=== PATIENT | male | born 1950 | race Caucasian/White ===

== ENCOUNTER 2020-04-24 13:51 | Observation (INO) | payer OTHER ==
--- NOTE | 2020-04-24 14:23 | RAD REPORT ---
EXAM DESCRIPTION: Macie Single View04/24/2020 2:17 pm CLINICAL HISTORY: Chest pain COMPARISON: none FINDINGS: Left base is hazy. Remainder lungs appear Clear of acute infiltrate. The heart is normal size IMPRESSION: Left base is hazy. This probably is secondary to mild atelectasis or pneumonia
[2020-04-24] MEDS ORDERED: ASPIRIN 81 MG CHEWABLE TABLET ONE (14:42)
[2020-04-24 14:45] LABS: Protime INR 1.05
[2020-04-24 14:56] LABS: Absolute Lymphocytes (CBC) 1.4 K/uL (0.7-4.9); Basophils % 0.7 % (0-1.3); Hematocrit 42.8 % (39.6-49.0); Lymphocytes % 12.6 % (15.3-44.8); MPV 7.5 fL (7.6-11.3); RBC Red Blood Cell Count 5.13 M/uL (4.33-5.43)
[2020-04-24 14:58] LABS: ALT/SGPT 24 U/L (12-78); AST/SGOT 21 U/L (15-37); Albumin 3.5 g/dL (3.4-5.0); Alkaline Phosphatase 116 U/L (45-117); BUN Blood Urea Nitrogen 15 mg/dL (7-18); Bicarbonate 25 mmol/L (21-32); Bilirubin Direct 0.2 mg/dL (0-0.2); Bilirubin Total 0.7 mg/dL (0.2-1.0); Glucose Level 128 mg/dL (74-106); Magnesium 2.3 mg/dL (1.8-2.4); NT PRO-BNP 223 pg/mL (<125); Potassium 4.1 mmol/L (3.5-5.1); Protein, Total 7.5 g/dL (6.4-8.2); Sodium Level 138 mmol/L (136-145); Troponin (Emerg Dept Use Only) < 0.02 ng/mL (0.0-0.045)
--- NOTE | 2020-04-24 15:32 | EDPHYS ---
Physician Documentation [facility] Name: Amado Rocha Age: 69 yrs Sex: Male : 1950 Arrival Date: 04/24/2020 Time: 13:52 Bed 6 Private MD: ED Physician Spenser Dickson HPI: 04/24 13:56 This 69 yrs old Male presents to ER via Ambulatory with complaints of Chest pm1 Pain. 13:56 The patient or guardian reports chest pain that is located primarily in the mid-sternal pm1 area and left arm. Onset: today, at 10:00. The pain does not radiate. Associated signs and symptoms: Pertinent positives: nausea, shortness of breath, productive cough last night. The chest pain is described as a pressure. Duration: The patient or guardian reports a single episode, that is still ongoing. Modifying factors: The symptoms are alleviated by rest, the symptoms are aggravated by exertion. Severity of pain: in the emergency department the pain is actually worse. The patient has not experienced similar symptoms in the past. Historical: - Allergies: 14:09 No Known Allergies; ca1 - PMHx: 14:09 Asthma; Bradycardia; tachycardia; ca1 - Immunization history:: Adult Immunizations up to date. - Social history:: Smoking status: Patient denies any tobacco usage or history of. ROS: 13:56 Constitutional: Negative for fever, chills, and weight loss, Neck: Negative for injury, pm1 pain, and swelling. 13:56 Abdomen/GI: Negative for abdominal pain, nausea, vomiting, diarrhea, and constipation, Back: Negative for injury and pain, MS/Extremity: Negative for injury and deformity, Skin: Negative for injury, rash, and discoloration, Neuro: Negative for headache, weakness, numbness, tingling, and seizure. 13:56 Cardiovascular: Positive for chest pain, Negative for edema, orthopnea, palpitations. 13:56 Respiratory: Positive for cough, with yellow sputum, shortness of breath. Exam: 13:56 Constitutional: This is a well developed, well nourished patient who is awake, alert, pm1 and in no acute distress. Head/Face: Normocephalic, atraumatic. 13:56 Back: No spinal tenderness. No costovertebral tenderness. Full range of motion. Skin: Warm, dry with normal turgor. Normal color with no rashes, no lesions, and no evidence of cellulitis. MS/ Extremity: Pulses equal, no cyanosis. Neurovascular intact. Full, normal range of motion. 13:56 Cardiovascular: Exam negative for acute changes, Rate: normal, Rhythm: regular, Pulses: no pulse deficits are appreciated. 13:56 Respiratory: Exam negative for acute changes, respiratory distress, shortness of breath. 13:56 Neuro: Exam negative for acute changes, Orientation: is normal, Motor: is normal, moves all fours. Vital Signs: 14:05 BP 128 / 61; Pulse 67; Resp 16 S; Temp 97.5(TE); Pulse Ox 98% on R/A; Weight 129.27 kg ca1 (R); Height 6 ft. 1 in. (185.42 cm) (R); Pain 4/10; 16:00 BP 117 / 58; Pulse 68; Resp 16; Pulse Ox 97% ; bp 17:00 BP 110 / 59; Pulse 73; Resp 16; Pulse Ox 98% ; bp 18:00 BP 121 / 68; Pulse 75; Resp 16; Pulse Ox 96% ; bp 19:27 BP 120 / 69; Pulse 70; Resp 17; Temp 98; Pulse Ox 99% ; Pain 0/10; rr5 14:05 Body Mass Index 37.60 (129.27 kg, 185.42 cm) ca1 MDM: 13:56 Patient medically screened. pm1 15:25 Counseling: I had a detailed discussion with the patient and/or guardian regarding: the pm1 historical points, exam findings, and any diagnostic results supporting the discharge/admit diagnosis, lab results, radiology results, the need for further work-up and treatment in the hospital. 15:31 Data reviewed: vital signs. Data interpreted: Pulse oximetry: on room air is 98 %. pm1 Interpretation: normal. 04/24 13:56 Order name: Basic Metabolic Panel; Complete Time: 14:59 pm1 04/24 13:56 Order name: CBC with Diff; Complete Time: 14:59 pm1 04/24 13:56 Order name: LFT's; Complete Time: 14:59 pm1 04/24 13:56 Order name: Magnesium; Complete Time: 14:59 pm1 04/24 13:56 Order name: NT PRO-BNP; Complete Time: 14:59 pm1 04/24 13:56 Order name: PT-INR; Complete Time: 14:59 pm1 04/24 13:56 Order name: Troponin (emerg Dept Use Only); Complete Time: 14:59 pm1 04/24 15:24 Order name: Flu; Complete Time: 17:21 pm1 04/24 15:24 Order name: Blood Culture Adult (2) pm1 04/24 16:40 Order name: CBC with Automated Diff EDMS 04/24 16:40 Order name: CBC with Automated Diff; Complete Time: 06:29 EDMS 04/24 16:40 Order name: CKMB Creatine Kinase MB EDMS 04/24 16:40 Order name: CKMB Creatine Kinase MB; Complete Time: 06:29 EDMS 04/24 13:56 Order name: XRAY Chest (1 view); Complete Time: 14:26 pm04/24 16:40 Order name: CKMB Creatine Kinase MB; Complete Time: 06:29 EDMS 04/24 16:40 Order name: CKMB Creatine Kinase MB; Complete Time: 06:29 EDMS 04/24 16:40 Order name: Comprehensive Metabolic Panel EDMS 04/24 16:40 Order name: Comprehensive Metabolic Panel; Complete Time: 06:29 EDMS 04/24 16:40 Order name: Lipid Profile EDMS 04/24 16:40 Order name: Lipid Profile; Complete Time: 06:29 EDMS 04/24 16:40 Order name: Magnesium EDMS 04/24 16:40 Order name: Magnesium; Complete Time: 06:29 EDMS 04/24 16:40 Order name: Phosphorus EDMS 04/24 16:40 Order name: Phosphorus; Complete Time: 06:29 EDMS 04/24 16:40 Order name: Troponin I EDMS 04/24 16:40 Order name: Troponin I; Complete Time: 06:29 EDMS 04/24 16:40 Order name: Troponin I; Complete Time: 06:29 EDMS 04/24 16:40 Order name: Troponin I; Complete Time: 06:29 EDMS 04/24 17:53 Order name: SARS-COV-2 RT PCR; Complete Time: 18:07 EDMS 04/24 13:56 Order name: EKG; Complete Time: 13:57 pm04/24 13:56 Order name: Cardiac monitoring; Complete Time: 14:06 pm04/24 13:56 Order name: EKG - Nurse/Tech; Complete Time: 14:06 pm1 04/24 13:56 Order name: IV Saline Lock; Complete Time: 14:35 pm1 04/24 13:56 Order name: Labs collected and sent; Complete Time: 14:35 pm1 04/24 13:56 Order name: O2 Per Protocol; Complete Time: 14:06 pm1 04/24 13:56 Order name: O2 Sat Monitoring; Complete Time: 14:06 pm1 04/24 16:40 Order name: Heart Healthy EDMS 04/24 18:44 Order name: CT; Complete Time: 06:29 EDMS Administered Medications: 14:15 Drug: Aspirin Chewable Tablet 324 mg Route: PO; bp 16:17 Follow up: Response: Marked relief of symptoms bp 15:40 Drug: Xopenex 1.25 mg Route: Inhalation; bp 15:40 Drug: Rocephin 1 grams Route: IV; Rate: calculated rate; Site: right forearm; bp 16:17 Follow up: IV Status: Completed infusion; IV Intake: 50ml bp 19:50 Not Given (Patient Refused): morphine 4 mg IVP once; RASS on ADMIN: Combtv4, Very rr5 Agttd3, Agttd2, Rstlss1, AlertClm0, Drwsy-1, Lt Sdtn-2, Mod Sdtn-3, Dp Sdtn-4, UnArsble-5 19:50 Not Given (Patient Refused): Zofran (Ondansetron) 4 mg IVP once; over 2 minutes rr5 Disposition: 04/24/20 15:32 Hospitalization ordered by Ran Dale for Observation. Preliminary diagnosis are Chest pain, unspecified, Pneumonia, unspecified organism. - Bed requested for Telemetry/MedSurg (observation). - Status is Observation. rr5 - Condition is Stable. - Problem is new. - Symptoms have improved. Addendum: 04/28/2020 20:25 Co-signature as Attending Physician, Spenser Dickson MD. r n Signatures: Dispatcher [employer] [facility] Aury Mcgovern RN RN dw Nieto, Roman, MD MD rn Marinas, Patrick, MILK PICKUP TRUCK DRIVER MIL[employer] PICKUP TRUCK DRIVER pm1 Harjeet Whitley RN RN bp Roque, Raymond, RN RN rr5 Acob, Leann, RN RN ca1 Corrections: (The following items were deleted from the chart) 04/24 16:25 15:25 CORONAVIRUS+MR.LAB.BRZ ordered. EDMS EDMS 18: 15:32 Hospitalization Ordered by Ran Dale MD for Observation. Preliminary dw diagnosis is Chest pain, unspecified; Pneumonia, unspecified organism. Bed requested for Telemetry/MedSurg (observation). Status is Observation. Condition is Stable. Problem is new. Symptoms have improved. pm1 19:52 18:01 04/24/2020 15:32 Hospitalization Ordered by Ran Dale MD for Observation. rr5 Preliminary diagnosis is Chest pain, unspecified; Pneumonia, unspecified organism. Bed requested for Telemetry/MedSurg (observation). Status is Observation. Condition is Stable. Problem is new. Symptoms have improved. dw
--- NOTE | 2020-04-24 15:32 | ER ---
Nurse's Notes [facility] Name: Amado Rocha Age: 69 yrs Sex: Male : 1950 Arrival Date: 04/24/2020 Time: 13:52 Bed 6 Private MD: Diagnosis: Chest pain, unspecified;Pneumonia, unspecified organism Presentation: 04/24 14:05 Chief complaint: Patient states: Chest pain started around 10am today. Radiating to the ca1 L shoulder, L arm, intermittent, pain described as pressure. SOB with CP. Took extra strength Tylenol taken at 10, [place] taken at 1230 pm. No relief. Coronavirus screen: Client denies travel out of the [place] in the last 14 days. At this time, the client does not indicate any symptoms associated with coronavirus-19. Ebola Screen: Patient negative for fever greater than or equal to 101.5 degrees Fahrenheit, and additional compatible Ebola Virus Disease symptoms Patient denies exposure to infectious person. Patient denies travel to an Ebola-affected area in the 21 days before illness onset. No symptoms or risks identified at this time. Initial Sepsis Screen: Does the patient meet any 2 criteria? No. Patient's initial sepsis screen is negative. Does the patient have a suspected source of infection? No. Patient's initial sepsis screen is negative. Risk Assessment: Do you want to hurt yourself or someone else? Patient reports no desire to harm self or others. Onset of symptoms was April 24, 2020. 14:05 Method Of Arrival: Ambulatory ca1 14:05 Acuity: ISABEL 3 ca1 Triage Assessment: 14:05 General: Appears in no apparent distress. comfortable, Behavior is cooperative, bp appropriate for age, anxious. Pain: Complains of pain in chest. EENT: No deficits noted. Neuro: No deficits noted. Cardiovascular: Rhythm is sinus rhythm. Respiratory: No deficits noted. GI: No signs and/or symptoms were reported involving the gastrointestinal system. : No signs and/or symptoms were reported regarding the genitourinary system. Derm: No deficits noted. Musculoskeletal: No deficits noted. Historical: - Allergies: 14:09 No Known Allergies; ca1 - PMHx: 14:09 Asthma; Bradycardia; tachycardia; ca1 - Immunization history:: Adult Immunizations up to date. - Social history:: Smoking status: Patient denies any tobacco usage or history of. Screenin:10 Abuse screen: Denies threats or abuse. Denies injuries from another. Nutritional bp screening: No deficits noted. Tuberculosis screening: No symptoms or risk factors identified. Fall Risk None identified. Assessment: 14:05 General: SEE TRIAGE NOTE. bp 16:00 Reassessment: ADMIT MD AT B/S FOR EVAL. PT STATES MAJOR RELIEF OF S/S. bp 17:00 Reassessment: ADMIT IN PROCESS, COVID RESULT PENDING. bp 19:20 General: Appears in no apparent distress. comfortable, Behavior is calm, cooperative, rr5 appropriate for age. 19:20 Pain: Complains of pain in chest Pain does not radiate. Pain currently is 0 out of 10 rr5 on a pain scale. Quality of pain is described as aching, Pain began gradually, Is intermittent. Neuro: Level of Consciousness is awake, alert, obeys commands, Oriented to person, place, time, situation. Cardiovascular: Denies chest pain, Capillary refill < 3 seconds Patient's skin is warm and dry. Respiratory: Reports shortness of breath cough that is Airway is patent Respiratory effort is even, unlabored, Respiratory pattern is regular, symmetrical. GI: No signs and/or symptoms were reported involving the gastrointestinal system. : No signs and/or symptoms were reported regarding the genitourinary system. EENT: No signs and/or symptoms were reported regarding the EENT system. Derm: Skin is intact, is healthy with good turgor, Skin temperature is warm. Vital Signs: 14:05 BP 128 / 61; Pulse 67; Resp 16 S; Temp 97.5(TE); Pulse Ox 98% on R/A; Weight 129.27 kg ca1 (R); Height 6 ft. 1 in. (185.42 cm) (R); Pain 4/10; 16:00 BP 117 / 58; Pulse 68; Resp 16; Pulse Ox 97% ; bp 17:00 BP 110 / 59; Pulse 73; Resp 16; Pulse Ox 98% ; bp 18:00 BP 121 / 68; Pulse 75; Resp 16; Pulse Ox 96% ; bp 19:27 BP 120 / 69; Pulse 70; Resp 17; Temp 98; Pulse Ox 99% ; Pain 0/10; rr5 14:05 Body Mass Index 37.60 (129.27 kg, 185.42 cm) ca1 ED Course: 13:52 Patient arrived in ED. ds1 13:56 Luis Horton, VI is PHCP. pm1 13:56 Spenser Dickson MD is Attending Physician. pm1 14:05 Harjeet Whitley, VIRA is Primary Nurse. bp 14:07 Triage completed. ca1 14:09 Arm band placed on right wrist. ca1 14:10 Patient has correct armband on for positive identification. Bed in low position. Call bp light in reach. Side rails up X2. court recording monitor on. Pulse ox on. NIBP on. 14:10 Patient maintains SpO2 saturation greater than 95% on room air. bp 14:18 XRAY Chest (1 view) In Process Unspecified. EDMS 14:30 Inserted saline lock: 20 gauge in right forearm, using aseptic technique. bp 15:32 Ran Dale MD is Hospitalizing Provider. pm1 19:07 No provider procedures requiring assistance completed. Patient admitted, IV remains in bp place. Administered Medications: 14:15 Drug: Aspirin Chewable Tablet 324 mg Route: PO; bp 16:17 Follow up: Response: Marked relief of symptoms bp 15:40 Drug: Xopenex 1.25 mg Route: Inhalation; bp 15:40 Drug: Rocephin 1 grams Route: IV; Rate: calculated rate; Site: right forearm; bp 16:17 Follow up: IV Status: Completed infusion; IV Intake: 50ml bp 19:50 Not Given (Patient Refused): morphine 4 mg IVP once; RASS on ADMIN: Combtv4, Very rr5 Agttd3, Agttd2, Rstlss1, AlertClm0, Drwsy-1, Lt Sdtn-2, Mod Sdtn-3, Dp Sdtn-4, UnArsble-5 19:50 Not Given (Patient Refused): Zofran (Ondansetron) 4 mg IVP once; over 2 minutes rr5 Intake: 16:17 IV: 50ml; Total: 50ml. bp Outcome: 15:32 Decision to Hospitalize by Provider. pm1 19:37 Admitted to Med/surg accompanied by tech, via stretcher, room 221, with chart, Report rr5 called to torres 19:37 Condition: stable 19:37 Instructed on the need for admit. 19:52 Patient left the ED. rr5 Signatures: Dispatcher [employer] NELLI Isma Miladis ds1 Luis Horton, MACHINE OVERHAULER MACHINE OVERHAULER pm1 Harjeet Whitley, RN RN bp Abel Russ, RN RN rr5 Leann Chawla RN RN ca1
[2020-04-24] MEDS ORDERED: NA CHLORIDE 0.9% 100 ML IV ONE (15:56)
[2020-04-24] MEDS ORDERED: LEVALBUTEROL 1.25 MG/3 ML NEB ONE (15:56)
[2020-04-24] MEDS ORDERED: CEFTRIAXONE/SWI 1gm 1 GM/10 ML SYR ONE (15:57)
[2020-04-24] MEDS ORDERED: ALBUTEROL 2.5 MG/3 ML NEB SOL NEB PRN (16:35)
[2020-04-24] MEDS ORDERED: ACETAMINOPHEN 500 MG TAB PO PRN (16:35)
[2020-04-24] MEDS ORDERED: ONDANSETRON 4 MG/2 ML VIAL IV PRN (16:35)
--- NOTE | 2020-04-24 16:51 | P.HP ---
Certification for Inpatient Patient admitted to: Inpatient With expected LOS: >2 Midnights Practitioner: I am a practitioner with admitting privileges, knowledge of patient current condition, hospital course, and medical plan of care. 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 Chest discomfort as retrosternal radiating to the left arm. denies any previous history of CAD. Patient has respiratory tract symptoms for the last few days and has cough with mucoid expectoration , chest discomfort is pressure-like , at the time of interview he does not have any chest pain. No fever or chills patient was assessed in the ER and was found to have chest pain to rule out ACS and also workup was consistent with left lower lobe pneumonia. Patient is being admitted for further management Home medications list reviewed: Yes - Past Medical/Surgical History Past Medical History: Reviewed- Non-Contributory -: Tachy Santo Past Surgical History: Reviewed- Non-Contributory - Family History Family History: Reviewed- Non-Contributory - Social History Smoking Status: Never smoker Review of Systems 10-point ROS is otherwise unremarkable Physical Examination - Vital Signs Temperature: 98.3 F Blood Pressure: 112/78 Pulse: 78 Respirations: 18 - Physical Exam General: Alert, In no apparent distress, Obese HEENT: Atraumatic, Normocephalic Neck: Supple Respiratory: Diminished, Crackles/rales Cardiovascular: Regular rate/rhythm, Normal S1 S2 Capillary refill: <2 Seconds Gastrointestinal: Soft and benign, W/out hepatosplenomegaly Musculoskeletal: No clubbing, No swelling Integumentary: No rashes Neurological: Normal speech, Normal strength at 5/5 x4 extr Lymphatics: No axilla or inguinal lymphadenopathy - Studies Laboratory Data (last 24 hrs) 04/24/20 14:30: PT 12.4, INR 1.05 04/24/20 14:30: WBC 10.8, Hgb 14.9, Hct 42.8, Plt Count 213 04/24/20 14:30: Sodium 138, Potassium 4.1, BUN 15, Creatinine 1.19, Glucose 128 H, Magnesium 2.3, Total Bilirubin 0.7, AST 21, ALT 24, Alkaline Phosphatase 116 Assessment and Plan - Problems (Diagnosis) (1) Left lower lobe pneumonia Current Visit: Yes Status: Acute (2) Chest pain Current Visit: Yes Status: Acute - Plan Acute hypoxic respiratory failure Left lower lobe pneumonia Chest pain to rule out ACS Plan Monitor closely under telemetry Trend cardiac enzymes Aspirin statin X-ray suggestive of left lower pneumonia Will start on IV antibiotics Cardiology consult will also get a D-dimer CT of the chest in the D-dimer is elevated Anticoagulation oxygen supplementation will get a Covid 19 test GI/DVT prophylaxis Advanced directives full code - Advance Directives Does patient have a Living Will: No Does patient have a Durable POA for Healthcare: No Time Spent Managing Pts Care (In Minutes): 45
[2020-04-24] MEDS: AZITHROMYCIN IV 500 MG in NA CHLORIDE 0.9% 250 ML IVPB SCH (17:00)
--- NOTE | 2020-04-24 18:44 | RAD REPORT ---
EXAM DESCRIPTION: CT - Chest For Pe Angio - 04/24/2020 5:47 pm CLINICAL HISTORY: sob COMPARISON: None. TECHNIQUE: Dynamically enhanced axial 3 mm thick images of the chest were obtained during administra tion of <100> mL Isovue 370 IV contrast. Coronal and oblique reconstruction images were generated and reviewed. Exam utilizes a protocol for optimal evaluation of pulmonary arterial tree. Maximum intensity projections 3D imaging was utilized All CT scans are performed using dose optimization technique as appropriate and may include automated exposure control or mA/KV adjustment according to patient size. FINDINGS: A pulmonary embolus is not seen. A thoracic aortic aneurysm is not noted. A pleural effusion is not seen. A pericardial effusion is not seen. Mild lingular opacity. Mild left lower lobe opacity IMPRESSION: Negative for a pulmonary embolism. Mild left lower lobe opacity consistent with atelectasis Mild lingular opacity may represent a small pneumonia
[2020-04-24] MEDS: ENOXAPARIN 40 MG/0.4 ML SQ SCH (20:16)
[2020-04-24] MEDS ORDERED: AZITHROMYCIN 500 MG INJ IVPB ONE (20:21)
[2020-04-24] MEDS ORDERED: ATORVASTATIN 40 MG TAB PO SCH (21:00)
[2020-04-24 23:05] LABS: CKMB Creatine Kinase MB 1.8 ng/mL (0.3-3.6); Troponin I < 0.02 ng/mL (0.0-0.045)
[2020-04-25 00:05] VITALS: BMI 37.5
[2020-04-25] MEDS ORDERED: MORPHINE 2 MG/ML SYR IV PRN (01:11)
[2020-04-25 05:53] LABS: Absolute Lymphocytes (CBC) 1.3 K/uL (0.7-4.9); Basophils % 0.6 % (0-1.3); Hematocrit 40.8 % (39.6-49.0); Lymphocytes % 11.1 % (15.3-44.8); MPV 7.2 fL (7.6-11.3); RBC Red Blood Cell Count 4.86 M/uL (4.33-5.43)
[2020-04-25 06:14] LABS: CKMB Creatine Kinase MB 1.5 ng/mL (0.3-3.6); Troponin I < 0.02 ng/mL (0.0-0.045)
[2020-04-25 06:16] LABS: Albumin 3.4 g/dL (3.4-5.0); Magnesium 2.1 mg/dL (1.8-2.4); Phosphorus 2.4 mg/dL (2.5-4.9); Potassium 4.3 mmol/L (3.5-5.1); Protein, Total 7.4 g/dL (6.4-8.2)
[2020-04-25] MEDS ORDERED: CEFTRIAXONE/SWI 1gm 1 GM/10 ML SYR IVP SCH (09:00)
[2020-04-25] MEDS ORDERED: ASPIRIN EC 81 MG TAB PO SCH (09:00)
[2020-04-25] MEDS: POTASS/SODIUM PHOSPHATE 1 PKT POWD.PACK PO SCH ×3 (09:38→11:49)
[2020-04-25] MEDS: ENOXAPARIN 40 MG/0.4 ML SQ SCH (09:40)
[2020-04-25] MEDS: AZITHROMYCIN IV 500 MG in NA CHLORIDE 0.9% 250 ML IVPB SCH (09:41)
[2020-04-25 11:33] VITALS: O2SAT 94
--- NOTE | 2020-04-25 11:44 | P.DS ---
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 Chest discomfort as retrosternal radiating to the left arm. denies any previous history of CAD. Patient has respiratory tract symptoms for the last few days and has cough with mucoid expectoration , chest discomfort is pressure-like , at the time of interview he does not have any chest pain. No fever or chills patient was assessed in the ER and was found to have chest pain to rule out ACS and also workup was consistent with left lower lobe pneumonia. Patient is being admitted for further management Hospital Course: Unstable angina Acute hypoxic respiratory failure Left lower lobe pneumonia Course Patient was admitted and was monitor closely under telemetry Trended cardiac enzymes and was started on Aspirin statin X-ray suggestive of left lower pneumonia Started on IV antibiotics Cardiology consulted CT of the chest Was also done . patient was initially on oxygen supplementation Later on weaned off of oxygen. 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 patient is being discharged home today in a stable condition with advice to follow up with PCP in 1 week and also with Cardiology in 1-2 days Vital Signs/Physical Exam: Temp Pulse Resp BP Pulse Ox 97.8 F 81 18 108/52 L 94 04/25/20 08:00 04/25/20 08:00 04/25/20 08:00 04/25/20 08:00 04/25/20 08:00 General: Alert, In no apparent distress HEENT: Atraumatic, Normocephalic Neck: Supple Respiratory: Clear to auscultation bilaterally Cardiovascular: Regular rate/rhythm, Normal S1 S2 Capillary refill: <2 Seconds Gastrointestinal: Soft and benign, W/out hepatosplenomegaly Musculoskeletal: No clubbing, No swelling Integumentary: No rashes Neurological: Normal strength at 5/5 x4 extr Lymphatics: No axilla or inguinal lymphadenopathy Laboratory Data at Discharge: WBC 11.6 K/uL (4.3-10.9) H 04/25/20 05:37 Hgb 13.9 g/dL (13.6-17.9) 04/25/20 05:37 Hct 40.8 % (39.6-49.0) 04/25/20 05:37 Plt Count 213 K/uL (152-406) 04/25/20 05:37 PT 12.4 SECONDS (9.5-12.5) 04/24/20 14:30 INR 1.05 04/24/20 14:30 Sodium 139 mmol/L (136-145) 04/25/20 05:37 Potassium 4.3 mmol/L (3.5-5.1) 04/25/20 05:37 BUN 11 mg/dL (7-18) 04/25/20 05:37 Creatinine 1.28 mg/dL (0.55-1.3) 04/25/20 05:37 Glucose 119 mg/dL (74-106) H 04/25/20 05:37 Phosphorus 2.4 mg/dL (2.5-4.9) L 04/25/20 05:37 Magnesium 2.1 mg/dL (1.8-2.4) 04/25/20 05:37 Total Bilirubin 1.0 mg/dL (0.2-1.0) 04/25/20 05:37 AST 19 U/L (15-37) 04/25/20 05:37 ALT 21 U/L (12-78) 04/25/20 05:37 Alkaline Phosphatase 107 U/L (45-117) 04/25/20 05:37 Troponin I < 0.02 ng/mL (0.0-0.045) 04/25/20 05:37 Triglycerides 111 mg/dL (<150) 04/25/20 05:37 Cholesterol 122 mg/dL (<200) 04/25/20 05:37 HDL Cholesterol 53 mg/dL (40-60) 04/25/20 05:37 Cholesterol/HDL Ratio 2.30 04/25/20 05:37 Home Medications: Aspirin [Aspirin EC 81 MG] 1 tab PO BEDTIME 04/24/20 Atorvastatin Calcium [Lipitor] 1 tab PO BEDTIME 04/24/20 Cholecalciferol (Vitamin D3) [Vitamin D 5,000 IU Cap*] 1 cap PO BEDTIME 04/24/20 Escitalopram [Lexapro*] 5 mg PO BEDTIME 04/24/20 Ezetimibe 1 tab PO BEDTIME 04/24/20 Flecainide [Tambocor*] 50 mg PO BID 04/24/20 Metoprolol Succinate 25 mg PO BEDTIME 04/24/20 Montelukast Sodium 1 tab PO BEDTIME 04/24/20 Tiotropium [Spiriva Handihaler*] 1 puff IH BEDTIME 04/24/20 Cefdinir [Cefdinir*] 300 mg PO BID #14 cap 04/25/20 Guaifenesin [Mucinex] 600 mg PO BID #20 tab.er.12h 04/25/20 Nitroglycerin 0.4 mg SL Q5MX3 PRN #30 tab.subl 04/25/20 New Medications: Cefdinir [Cefdinir*] 300 mg PO BID #14 cap Guaifenesin [Mucinex] 600 mg PO BID #20 tab.er.12h Nitroglycerin 0.4 mg SL Q5MX3 PRN #30 tab.subl PRN Reason: Pain Scale 5-7 (Moderate) Diet: AHA Activity: Ad regan Followup: Lior Peralta MD [ACTIVE - CAN ADMIT] - Time spent managing pt's care (in minutes): 32
[2020-04-25 12:03] VITALS: BP 113/55; TEMP 98
[2020-04-25 14:37] LABS: CKMB Creatine Kinase MB 1.7 ng/mL (0.3-3.6); Troponin I < 0.02 ng/mL (0.0-0.045)
--- NOTE | 2020-04-26 08:45 | EKG ---
Test Date: 2020-04-24 Test Time: 14:05:37 Planting Supervisor: VENICE MEASUREMENT RESULTS: Intervals: Rate: 60 SC: 206 QRSD: 88 QT: 424 QTc: 424 [place]: P: 41 SC: 206 QRS: 65 T: 93 INTERPRETIVE STATEMENTS: Normal sinus rhythm Nonspecific ST abnormality Abnormal ECG No previous ECG available for comparison Electronically Signed On 04-26-20 08:38:56 CDT by Lior Peralta
--- NOTE | 2020-04-29 09:15 | CON ---
Date of Consultation: 04/25/2020 The patient admitted on 04/25/[address] Chito castro. I saw the patient on 04/25/2020. Reason For Consultation: Chest pain. History Of Present Illness: Mr. Rocha is a 69-year-old white male. He sees Dr. David Reeves in [place] for sick sinus syndrome. He lives in [facility]. He has been placed on metopro lol and flecainide for sick sinus syndrome. He also takes Lipitor and aspirin for dyslipidemia. Has had previous noninvasive cardiac workup that has been negative. He came in with substernal chest pa in radiating to the left arm and the neck with some shortness of breath and diaphoresis. No nausea o r vomiting. EKG is unremarkable. and his pain free after receiving 4 aspirin and morphin e dose. He expressed wishes to go back and see Dr. Reeves, which I agreed with. Past Medical History: As stated above. Allergies: NONE. Review of Systems: Negative. Social History: Negative. Family History: Noncontributory. Medications: Include metoprolol, flecainide, Lipitor, and aspirin. Physical Examination: General: Very pleasant man, asymptomatic. Vital Signs: Stable. Heart: sinus rhythm. HEENT: Negative. Neck: Supple with no bruit. Chest: Clear. Cardiac: Revealed regular rhythm and rate. No murmurs, gallops, or rubs. Abdomen: Benign. Extremities: Revealed no clubbing, cyanosis, or edema. Diagnostic Data: Normal. Impression And Plan: I think Mr. Rocha's symptoms are consistent with angina and coronary artery d isease. He has ruled out for an WA. His EKG is normal. He is asymptomatic. I am comfortable with him going home. I discussed the case with Dr. Reeves and the patient. He will be going to see Dr Rhiannon Reeves on 04/26/2020 to be set up for a heart catheterization and possible coronary intervention . His rhythm is normal. We will continue metoprolol and flecainide. His dyslipidemia is controlled on Lipitor. He should be on aspirin but symptoms worsen after he goes home today, I told him to eit her come here or go to the emergency room at [facility]. SERAFIN/ARASELI Voice ID: [id number] Report ID: [id number]
== END 2020-04-25 14:41 | disposition home or self-care (01) ==
LOC: ER 13:51 → ERHOLD 16:37 → INTOOBSV 16:37 → 2ND 19:37
PROVIDERS: ADMIT Family Medicine; ATTEND Family Medicine
DX: J18.9 Pneumonia, unspecified organism (principal); J96.01 Acute respiratory failure with hypoxia; I20.0 Unstable angina; I49.5 Sick sinus syndrome; E78.5 Hyperlipidemia, unspecified; Z20.828 Contact with and (suspected) exposure to other viral communicable diseases; Z79.82 Long term (current) use of aspirin; Z79.899 Other long term (current) drug therapy
CPT/HCPCS: 96365; 93005; 87040 ×2; 85025 ×2; 80048; 36415; 83735 ×2; 84100; 85610; 80061; 80076; 84484 ×4; 82553 ×3; 80053; 83880; 87804 ×2; 71275; 71045; 94760 ×3; 99285; U0003; Q9967; J0456; J1650 ×2; J2270; J0696 ×2; J7050; G0378 ×3